=== PATIENT | male | born 1955 | race Caucasian/White ===

== ENCOUNTER 2023-09-11 20:31 | Emergency (ER) | payer MEDICARE ==
[~2023-09-11] VITALS: Ht 182.9 cm; Wt 99.8 kg
[2023-09-11 20:52] VITALS: BP 120/70; PULSE 119; RESP 26; TEMP 100.7; O2SAT 89
[2023-09-11] MEDS ORDERED: DUONEB 0.5-3(2.5) MG/3 ML IH ONE (21:10)
[2023-09-11 21:11] VITALS: PULSE 109; RESP 22; O2SAT 92
[2023-09-11 21:12] LABS: BASOPHIL % 0.3 % (0.0-0.2); EOSINOPHIL # 0.1 10^3/uL (0.0-0.2); HEMATOCRIT(ML) 49.3 % (37.0-53.0); HEMOGLOBIN 17.2 g/dL (13.9-16.3); LYMPHOCYTES # 1.27 10^3/uL1 (1.0-4.8); LYMPHOCYTES % 14.5 % (24.0-44.0); MEAN CORP HGB 31.9 pg (26-34); MEAN CORP HGB CONCENTRATION 34.9 g/dL (33-36.5); MEAN CORP VOLUME 91.3 fL (78-100); MONOCYTES # 0.6 10^3/uL (0.3-0.8); MONOCYTES % 6.4 % (5.0-12.0); NEUTROPHIL # 6.8 10^3/uL (1.8-7.7); NEUTROPHILS % 77.3 % (41.0-85.0); PLATELET COUNT 141 10^3/uL (150-400); RED CELL DISTRIBUTION WIDTH 12.7 % (11.5-14.5); WHITE BLOOD CELL 8.7 10^3/uL (4.5-11.0)
[2023-09-11] MEDS ORDERED: ROCEPHIN ONE (21:14)
[2023-09-11] MEDS ORDERED: OFIRMEV 1000 MG/100 ML 100 ML IV ONE (21:14)
[2023-09-11] MEDS ORDERED: SOLU-MEDROL ONE (21:14)
[2023-09-11] MEDS ORDERED: WATER 20 ML ONE (21:14)
[2023-09-11] MEDS ORDERED: NS 1000ML 1,000 ML ONE (21:14)
[2023-09-11] MEDS: ROCEPHIN 2,000 MG in NS 100ML 100 ML IV STA (21:15)
[2023-09-11] MEDS ORDERED: NS 100ML 100 ML IV ONE (21:15)
[2023-09-11] MEDS: SOLU-MEDROL IV STA (21:15)
[2023-09-11] MEDS: DUONEB 0.5-3(2.5) MG/3 ML IH STA (21:16)
[2023-09-11 21:17] VITALS: PULSE 105; RESP 22; O2SAT 92
[2023-09-11 21:23] LABS: INR 1.1; PROTHROMBIN PROTIME 11.5 SEC (9.7-11.6)
[2023-09-11] MEDS: NS 1000ML 1,000 ML STA (21:25)
[2023-09-11] MEDS: OFIRMEV 1000 MG/100 ML IV STA (21:25)
[2023-09-11 21:28] LABS: +ADD MANUAL DIFF(NO CHRG) NO
[2023-09-11] MEDS ORDERED: MAGNESIUM SULFATE 50 ML IV ONE (21:29)
[2023-09-11 21:33] LABS: ALANINE AMINOTRANSFERASE(ML) 30 U/L (12-78); ALBUMIN(ML) 3.6 g/dL (3.4-5.0); ALBUMIN/GLOBULIN RATIO 0.923; ALKALINE PHOSPHATASE 98 U/L (50-136); ANION GAP 14.3; ASPARTATE AMINO TRANSFERASE 18 U/L (0-35); CARBON DIOXIDE 22.5 mmol/L (20.0-32); CREATININE SERUM 1.31 mg/dL (0.59-1.40); EST GFR, NON-AA 54.4 (>/=60); GLUCOSE 146 mg/dL (74-106); POTASSIUM 3.8 mmol/L (3.6-5.2); SODIUM 136 mmol/L (132-145)
[2023-09-11] MEDS: MAGNESIUM SULFATE 50 ML IV ONE (21:35)
[2023-09-11 21:38] LABS: INFLUENZA VIRUS A ANTIGEN NEGATIVE (NEG); INFLUENZA VIRUS B ANTIGEN NEGATIVE (NEG)
[2023-09-11 21:39] LABS: CALCIUM 8.7 mg/dL (8.4-10.5)
[2023-09-11 21:40] LABS: TROPONIN I HIGH SENSITIVITY < 4 ng/L (0-75)
[2023-09-11 22:00] VITALS: BP 114/61; PULSE 97; RESP 22; O2SAT 93
[2023-09-11 22:16] LABS: BILIRUBIN,URINE NEGATIVE (NEGATIVE); LEUKOCYTE ESTERASE ,URINE NEGATIVE (NEGATIVE); NITRATE,URINE NEGATIVE (NEGATIVE); PH,URINE 5.5 (4.5-8.0); UROBILINOGEN,URINE 0.2 E.U./dL (0.2)
[2023-09-11 22:17] LABS: APPEARANCE,URINE CLEAR; UA COLOR YELLOW
[2023-09-11 22:42] VITALS: BP 134/79; PULSE 92; RESP 20; O2SAT 92
== END 2023-09-11 22:42 | disposition home or self-care (01) ==
LOC: ER 20:31
DX: E86.0 Dehydration (principal); B34.9 Viral infection, unspecified; E11.9 Type 2 diabetes mellitus without complications; I10 Essential (primary) hypertension; J44.9 Chronic obstructive pulmonary disease, unspecified; Z88.5 Allergy status to narcotic agent; Z88.8 Allergy status to other drugs, medicaments and biological substances; Z20.822 Contact with and (suspected) exposure to COVID-19
CPT/HCPCS: 99285; 70450; 96365; 71046; 96375; 87426; 96368; 74177; 81003; 80053; 85025; 36415; 84484; 87070; 87040 ×2; 83605; 87880; 87804 ×2; 83880; 85610; 85730; 93005; 94640; J7030; J3475; J0131; J0696 ×2; J2930; A4216; Q9965

== ENCOUNTER 2023-12-29 10:11 | Emergency (ER) | payer MEDICARE ==
[~2023-12-29] VITALS: Ht 182.9 cm; Wt 98.4 kg
[2023-12-29 10:20] VITALS: BP 117/70; PULSE 89; RESP 20; TEMP 98.1; O2SAT 94
[2023-12-29] MEDS ORDERED: CIPR10DR LEFT EAR (10:51)
[2023-12-29] MEDS ORDERED: CEFD300C2 PO (10:51)
[2023-12-29 10:55] VITALS: BP 114/63; PULSE 63; RESP 20; O2SAT 93
[2023-12-29] MEDS ORDERED: LIDOCAINE 1% VIAL ONE (10:57)
[2023-12-29] MEDS ORDERED: ROCEPHIN ONE (10:57)
[2023-12-29] MEDS: ROCEPHIN IM STA (11:01)
[2023-12-29 11:08] VITALS: BP 118/67; PULSE 65; RESP 20; O2SAT 95
[2023-12-30] MEDS ORDERED: ROCEPHIN IM SCH (09:00)
== END 2023-12-29 11:11 | disposition home or self-care (01) ==
LOC: ER 10:11
DX: H20.9 Unspecified iridocyclitis (principal); J32.0 Chronic maxillary sinusitis; H65.93 Unspecified nonsuppurative otitis media, bilateral; H60.93 Unspecified otitis externa, bilateral; E11.9 Type 2 diabetes mellitus without complications; I10 Essential (primary) hypertension; J44.9 Chronic obstructive pulmonary disease, unspecified; Z87.891 Personal history of nicotine dependence; Z88.5 Allergy status to narcotic agent; Z88.8 Allergy status to other drugs, medicaments and biological substances
CPT/HCPCS: 99284; 96372; J2001; J0696